=== PATIENT | female | born 1935 | race Caucasian/White ===

== ENCOUNTER 2019-02-27 08:18 | Emergency (ER) | payer MEDICARE, OTHER ==
[~2019-02-27] VITALS: Ht 157.5 cm; Wt 65.1 kg
--- NOTE | 2019-02-27 09:12 | Diagnostic Imaging Report ---
INDICATION: Left hip arthroplasty, left hip pain. COMPARISON: None. FINDINGS: Single view pelvis, 2 views left hip demonstrate intact well seated left hip arthroplasty. There is no periprosthetic fracture or dislocation. Minimal degenerative changes seen involving the right hip. The pelvis is intact. IMPRESSION: Stable appearing left hip arthroplasty. No fracture identified. Dictated by: Dictated on workstation # [id number]
[2019-02-27] MEDS ORDERED: HYDROcodone/APAP 5 MG/325 MG (LORTAB) TAB PO ONE (09:15)
[2019-02-27] MEDS ORDERED: TRAM50TA2 PO (09:21)
--- NOTE | 2019-02-27 09:21 | ED Lower Extremity ---
General Chief Complaint: Lower Extremity Stated Complaint: LT HIP PAIN Nursing Triage Note: Patient reports she was getting into bed last night and twisted her left leg. She reports pain when lifting her left leg and tenderness to the outside of her left hip. Nursing Sepsis Screen: No Definite Risk Source: patient Exam Limitations: no limitations History of Present Illness Date Seen by Provider: Feb 27, 2019 Time Seen by Provider: 09:00 Initial Comments Patient is an 83-year-old female who underwent left hip replacement several weeks ago presents with acute onset left hip pain after raising left leg lying supine in bed earlier this morning. Patient felt a sudden pain and popping sensation. Pain is rated moderate is worse with palpation and movement is partially improved with rest. Patient was able to get out of bed and is being laboratory with her walker since pain began. No other acute symptoms or complaints. On exam, there is no shortening rotation or deformity or suggestion of hip prosthesis dislocation or hardware failure. The patient has tenderness over her surgical scar. Onset: just prior to arrival Pain/Injury Location: left hip Method of Injury: twisted Modifying Factors: Improves With Movement Associated Symptoms: no other symptoms or complaints Allergies and Home Medications Allergies Coded Allergies: Sulfa (Sulfonamide Antibiotics) (Verified Allergy, Unknown, 02/27/19) Patient Home Medication List Home Medication List Reviewed: Yes Review of Systems Constitutional: no symptoms reported EENTM: no symptoms reported Respiratory: no symptoms reported Cardiovascular: no symptoms reported Gastrointestinal: no symptoms reported Musculoskeletal: joint pain Past Unvttud-Uwason-Rjeqaa Hx Past Med/Social Hx: Reviewed Nursing Past Med/Soc Hx Patient Social History Alcohol Use: Rarely Uses Recreational Drug Use: No Smoking Status: Never a Smoker 2nd Hand Smoke Exposure: No Recent Foreign Travel: No Contact w/Someone Who Travel: No Recent Infectious Disease Expo: No Recent Hopitalizations: Yes (December 2018 Left Hip Repair) Physical Abuse: No Sexual Abuse: No Mistreated: No Fear: No Seasonal Allergies Seasonal Allergies: No Past Medical History Surgeries: Yes Cardiac, Orthopedic Respiratory: No Cardiac: Yes (Congestive Heart Failure) Hypertension, Irregular Heartbeat Neurological: No Genitourinary: No Gastrointestinal: Yes Gastroesophageal Reflux Musculoskeletal: Yes (Left Hip Fx) Fractures Endocrine: No HEENT: No Cancer: No Psychosocial: Yes Depression Integumentary: No Blood Disorders: No Physical Exam Vital Signs Vital Signs - First Documented 02/27/19 08:23 Temp 36.5 Pulse 83 Resp 18 B/P (MAP) 156/96 (116) Pulse Ox 97 O2 Delivery Room Air Capillary Refill : Less Than 3 Seconds Height, Weight, BMI Height: '" Weight: lbs. oz. kg; 26.00 BMI Method: General Appearance: no apparent distress HEENT: PERRL/EOMI, normal ENT inspection Neck: supple Cardiovascular: normal peripheral pulses Respiratory: chest non-tender, lungs clear Hips: left hip other (no shortening rotation or deformity or suggestion of hip prosthesis dislocation or hardware failure. 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 No neurovascular compromise. Patient is able to ambulate with assist. Impression Primary Impression: Left hip pain Disposition: 01 HOME, SELF-CARE Condition: Stable Departure-Patient Inst. Referrals: NO,LOCAL PHYSICIAN (PCP/Family) Primary Care Physician Patient Instructions: Hip Pain (DC) Add. Discharge Instructions: Please take ibuprofen for pain and tramadol as needed for additional relief. Use walker for assistance gait and follow-up with orthopedic physician in 3-5 days if symptoms persist. Return to ED if new or worsening symptoms All discharge instructions reviewed with patient and/or family. Voiced understanding. BEBO MENDOZA DO Feb 27, 2019 09:21
[2019-02-27 09:40] VITALS: BP 134/63
== END 2019-02-27 09:40 | disposition home or self-care (01) ==
LOC: ER FS 08:21
DX: M25.552 Pain in left hip (principal); I11.0 Hypertensive heart disease with heart failure; I50.9 Heart failure, unspecified; F32.9 Major depressive disorder, single episode, unspecified; K21.9 Gastro-esophageal reflux disease without esophagitis; Z96.642 Presence of left artificial hip joint; Z88.2 Allergy status to sulfonamides; X50.1XXA Overexertion from prolonged static or awkward postures, initial encounter
CPT/HCPCS: 73502